=== PATIENT | female | born 1990 | race Caucasian/White ===

== ENCOUNTER 2017-06-01 13:21 | Emergency (ER) | payer BC ==
[2017-06-01] MEDS ORDERED: TDAP ADULT 0.5 ML INJ (BOOSTRIX) IM ONE (13:52)
--- NOTE | 2017-06-01 13:52 | EDPHY ---
General Narrative: CHIEF COMPLAINT: Head injury HISTORY OF PRESENT ILLNESS: Patient complains of "I took a digger last night." She reports drinking alcohol throughout the day. Around 1:45 a.m. she tripped, striking her forehead on some concrete. She did not lose consciousness. She did sustain a superficial laceration. She has a mild headache in the area. Some nausea, but she attributes this to "being hungover." No actual vomiting. No visual disturbance. No neck pain. No chest or back pain or injury. No injuries to the arms or legs. She does not recall when her last tetanus administration was. No other associated complaints or modifying factors. REVIEW OF SYSTEMS: Ten systems reviewed and are negative unless otherwise noted in the HPI PCP: Dr. Birmingham SPECIALISTS: None PAST MEDICAL HISTORY: Cataracts, attention deficit hyperactivity disorder PAST SURGICAL HISTORY: Corneal implants and Lasix surgery SOCIAL HISTORY: Daily smoker. Occasional alcohol use. Currently a student at [employer]. Originally from [facility] FAMILY HISTORY: Noncontributory EXAMINATION General Appearance: Alert, no distress Head: normocephalic. No Mccormick sign. No depression. No raccoon eyes. Superficial laceration over the left forehead. No active bleeding. No foreign body. Eyes: Pupils equal and round, no conjunctival pallor or injection ENT, Mouth: Mucous membranes moist. Airway is patent Neck: Normal inspection, supple, non-tender. No crepitus, step-off deformity. Painless range of motion all planes. Respiratory: Lungs are clear to auscultation. No wheezing, rhonchi or crackles Cardiovascular: Tachycardic rate. Regular rhythm. No murmur Gastrointestinal: Abdomen is soft and nontender. Distended tympany. No rigidity. Back: non-tender, no bony abnormalities Neurological: GCS 15. Cranial nerves 2-12 grossly intact. A&O, nonfocal, normal gait. Strength is symmetric in all 4 limbs. No pronator drift. Normal [id number]. Skin: Warm and dry, no rash. Superficial triangular stellate laceration of the left forehead. 1.5 cm length total. No foreign body. No active bleeding Extremities: Nontender, no pedal edema. Symmetric range of motion of the extremities. No outward signs of trauma to the extremities. Psychiatric: Mood and affect normal DIFFERENTIAL DIAGNOSES: Including but not limited to intracranial hemorrhage, laceration, hematoma, skull fracture, concussion MDM: 1:50 p.m. Closed head injury with superficial laceration to left forehead. No loss of consciousness. [place] CT head rules negative. Additionally, I do not feel she warrants CT scan did. She is fully neuro intact. She is awake alert no acute distress. Tetanus will be updated here. With the wound will need to be cleaned and re-evaluated for the possibility of closure versus delayed closure. 2:20 p.m. Wound was irrigated and I re-evaluated. There was some separation of the wound borders. Given that this is on the patient's face, she is requesting that we closed this with suture repair. She is right at 12:00 p.m. timeframe from injury. Just risks, benefits and alternatives. She is willing to assume the risk of possibility of infection. Furthermore I will place her on Augmentin for this. The wound is very superficial but did have some distraction, thus I do she will have a better scar and wound healing with suture repair. This was done without complication tolerable we discussed wound care. We discussed Augmentin prophylaxis. We discussed strict ED precautions for any worsening headache, vomiting, signs of infection as discussed. Discussed return to the emergency department and 5-7 days for suture removal. She is comfortable with this plan and discharged home stable condition. PROCEDURE: Laceration repair Consent: Verbal Location: Left side of forehead Length of repair: 1.5 cm, stellate Complexity: Simple Layer involvement: Single Anesthesia: Local. 1% lidocaine plain. Irrigation: Extensive Debridement: 3 mL none Procedure description: Following good anesthesia, the wound was copiously irrigated. Wound bed was explored with a sterile glove, and there is no foreign body noted. There is no exposure of the underlying frontalis muscle or galea. Wound borders were approximated well with good hemostasis. Tolerated well without complication. Suture/Staple material: 6-0 Prolene. Two simple interrupted sutures. Wound care: Routine as discussed Suture/Staple removal: 5-7 Days SUPERVISION: Patient was independently examined, but I discussed the case with my secondary supervising physician Dr. Mares - History Smoking Status: Current every day smoker - Objective Vital Signs: Initial Vital Signs Temperature (C) 98.1 F 06/01/17 13:25 Heart Rate 118 H 06/01/17 13:25 Respiratory Rate 16 06/01/17 13:25 Blood Pressure 122/86 H 06/01/17 13:25 O2 Sat (%) 98 06/01/17 13:25 O2 Delivery Mode Room Air Allergies/Adverse Reactions: No Known Allergies Allergy (Verified 06/01/17 13:25) Home Medications: Medication Instructions Recorded Amoxicillin/Clavulanate Pot 875 mg PO BID #14 tab 06/01/17 [Augmentin 875 MG TAB (*)] Amphet Asp and D/Amphet [Adderall 10 mg PO 06/01/17 10 MG (*)] Departure - Departure Disposition: Home, Routine, Self-Care Clinical Impression: Closed head injury Qualifiers: Encounter type: initial encounter Qualified Code(s): S09.90XA - Unspecified injury of head, initial encounter Laceration of forehead Qualifiers: Encounter type: initial encounter Qualified Code(s): S01.81XA - Laceration without foreign body of other part of head, initial encounter Condition: Good Instructions: Laceration (ED), Facial Laceration (ED), Head Injury (ED) Additional Instructions: 1. Daily wound care as discussed 2. ED precautions for headache as discussed 3. Return to emergency department in 5-10 days for suture removal 4. Augmentin as prescribed to completion Referrals: PATRICIO BRO [Other] - As per Instructions Prescriptions: Amoxicillin/Clavulanate Pot [Augmentin 875 MG TAB (*)] 875 mg PO BID #14 tab
[2017-06-01 14:58] VITALS: BP 121/87; PULSE 73; RESP 18; TEMP 98.4; O2SAT 94
== END 2017-06-01 14:58 | disposition home or self-care (01) ==
PROC: 0HQ1XZZ Repair Face Skin, External Approach (ICD-10-PCS; principal; 2017-06-01)
DX: S01.81XA Laceration without foreign body of other part of head, initial encounter (principal); F17.200 Nicotine dependence, unspecified, uncomplicated; Z23 Encounter for immunization; W22.09XA Striking against other stationary object, initial encounter; Y93.H1 Activity, digging, shoveling and raking